=== PATIENT | male | born 1955 | race Caucasian/White ===

== ENCOUNTER 2022-01-20 10:05 | Inpatient (IN) ==
[2022-01-20] MEDS ORDERED: IPRATROPIUM/ALBUTEROL 3 ML AMPUL.NEB NEB ONE ×2 (10:26→10:32)
[2022-01-20] MEDS ORDERED: methylPREDNISolone SOD SUCC 125 MG/2 ML VIAL IV ONE (10:32)
[2022-01-20] MEDS ORDERED: ALBUTEROL SULFATE 5 MG/ML NEB SOLUTION BOTTLE NEB ONE (10:32)
--- NOTE | 2022-01-20 10:36 | Emergency Department Note ---
SOB HPI General Chief Complaint: Shortness of Breath/Dyspnea Stated Complaint: UTI Time Seen by Provider: 01/20/22 10:06 Source: patient Mode of arrival: wheelchair Limitations: no limitations History of Present Illness HPI Narrative: Narrative: Patient presents ED with complaints of shortness of breath has been worsening over the last 11 days. He states at baseline he uses 3 L of oxygen via nasal cannula but has had to go up to 5 L which is the maximum that his machine go up to. He states that his oxygen level dips down to 36% at times but then comes up to about 88%. He denies fever, chills, nausea, vomit, abdominal pain, diarrhea, cardiac chest pain, heart palpitations. He does report that he has had a cough with some sputum production and reports that he has had some blood streaks in the sputum. Patient denies any other alleviating or aggravating factors. Related Data Home Medications Medication Instructions Recorded Confirmed cholecalciferol (vitamin D3) 125 125 mcg PO QDAY 10/31/20 11/09/21 mcg (5,000 unit) capsule ibuprofen 600 mg tablet 600 mg PO TID PRN 10/31/20 11/09/21 pediatric multivitamin PO QDAY 10/31/20 11/09/21 [multivitamin] sildenafil 100 mg tablet 50 mg PO .COMPLEX PRN 10/31/20 11/09/21 furosemide 20 mg tablet 20 mg PO QAM 01/19/21 11/09/21 pantoprazole 40 mg tablet,delayed 40 mg PO QAM 01/19/21 11/09/21 release potassium chloride 10 mEq 10 meq PO QDAY 01/19/21 11/09/21 tablet,extended release Previous Rx's Medication Instructions Recorded Portable concentrator for oxygen #1 ea 07/27/21 BiPap and Supplies #1 ea 11/09/21 albuterol sulfate 90 mcg/actuation 2 puff inhalation QID PRN 11/09/21 aerosol inhaler shortness of breath or wheezing #25.5 grams fluticasone 500 mcg-salmeterol 50 1 inh inhalation BID #180 ea 11/09/21 mcg/dose blistr powdr for inhalation (Wixela Inhub) ipratropium 20 mcg-albuterol 100 1 puff inhalation Q6H #12 grams 11/09/21 mcg/actuation mist for inhalation (Combivent Respimat) Allergies Allergy/AdvReac Type Severity Reaction Status Date / Time No Known Drug Allergies Allergy Verified 01/20/22 10:08 Review of Systems ROS ROS Narrative: Narrative: All systems ED: reviewed and negative except as stated. [facility] Narrative Patient History Narrative: Narrative: Medical/Surgical/Family History All Active Problems (Updated 01/20/22 @ 13:40 by [place] Fatima DO) Acute respiratory failure with hypoxia (Acute) Hypercapnia (Acute) Obstructive sleep apnea (Chronic) REM sleep behavior disorder (Chronic) Snoring (Chronic) Hypersomnia (Chronic) Acute on chronic diastolic (congestive) heart failure (Acute) Foot pain (Acute) SOB (shortness of breath) (Chronic) Orthopnea (Chronic) Status post thoracentesis (Chronic) Gastroesophageal reflux disease (Chronic) Hiatal hernia (Chronic) Excessive cerumen in ear canal (Chronic) Vitamin D deficiency (Chronic) Vitamin B12 deficiency anemia (Chronic) Unspecified hearing loss, bilateral (Chronic) Tinnitus, bilateral (Chronic) Erectile dysfunction (Chronic) Impacted cerumen (Chronic) Dependence on supplemental oxygen (Chronic) Congenital hiatus hernia (Chronic) Hypoxia (Chronic) Bilateral pleural effusion (Chronic) Pulmonary HTN (Chronic) Pneumonia (Chronic) Pleural effusion (Chronic) CHF (congestive heart failure) (Chronic) Acute respiratory failure (Chronic) COPD (chronic obstructive pulmonary disease) (Chronic) Medical History Acute on chronic diastolic (congestive) heart failure Acute respiratory failure Bilateral pleural effusion CHF (congestive heart failure) Congenital hiatus hernia COPD (chronic obstructive pulmonary disease) Dependence on supplemental oxygen Erectile dysfunction Excessive cerumen in ear canal Foot pain Gastroesophageal reflux disease Hiatal hernia Hypersomnia Hypoxia Impacted cerumen Obstructive sleep apnea Orthopnea Pleural effusion Pneumonia Pulmonary HTN REM sleep behavior disorder Snoring SOB (shortness of breath) Tinnitus, bilateral Unspecified hearing loss, bilateral Vitamin B12 deficiency anemia Vitamin D deficiency Surgical History History of colonoscopy Status post thoracentesis Family History Other No pertinent family history Social History Smoking Status: Former smoker Alcohol Intake Frequency: does not drink Substance Use: does not use Exam Narrative Narrative: Narrative: General Limitations: no limitations General appearance: Present alert ENT ENT: Present normal exam and normal oropharynx Chest Chest: Present normal inspection; Absent tenderness Respiratory Respiratory: Present respiratory distress, accessory muscle use and decreased breath sounds; Absent wheezes Cardiovascular Cardiovascular: Present regular rate and normal rhythm Adbominal Abdominal: Present soft; Absent tenderness Extremities Extremities: Present normal inspection and normal capillary refill Neurological Neurological: Present alert and oriented X3 Psychiatric Psychiatric: Present normal affect and normal mood Skin Skin: Present warm (WNL) and intact Course Course Course Narrative: Patient was evaluated for shortness of breath. Patient was found to have O2 saturation of 56% on initial evaluation. VBG showed that his pH was 7.38 but his CO2 level was greater than 95. Patient was given methylprednisolone IV as well as DuoNeb breathing treatment. He refused BiPAP. He was placed on high flow nasal cannula. PE was considered but D-dimer was within normal limits. CHF exacerbation was also considered but his BNP was unremarkable and his chest x-ray did not show any pleural effusion. Chest x-ray revealed pulmonary fibrosis with inflammation. NM was also considered but troponin was normal and EKG was unremarkable. Recommend the patient be admitted to the hospital service for acute respiratory failure with hypoxia and hypercapnia. Case discussed with hospitalist, Dr. Kelly, who was agreed to admit the patient. Plan of care was discussed with patient expressed verbal understanding and agreement. Reevaluation(s) Reevaluation #1: Patient remains hemodynamically stable on high flow nasal cannula. No new complaint Time: 11:33 Consultations Consultation #1: Case discussed with hospitalist who has agreed to admit the patient. He recommends starting patient on CPAP since he would not tolerate BiPAP Time: 13:55 Vital Signs Vital signs: Vital Signs Temperature 97.9 F 01/20/22 10:08 Pulse Rate 88 01/20/22 10:08 Respiratory Rate 22 01/20/22 10:08 Blood Pressure 130/69 01/20/22 10:08 Pulse Oximetry (%) 56 L 01/20/22 10:08 Oxygen Delivery Method 01/20/22 10:08 Oxygen Flow Rate (L/min) 5 01/20/22 10:08 Temperature 97.9 F 01/20/22 10:08 Pulse Rate 80 01/20/22 12:54 Respiratory Rate 23 H 01/20/22 12:54 Blood Pressure 127/67 01/20/22 12:46 Pulse Oximetry (%) 91 01/20/22 12:56 Oxygen Delivery Method 01/20/22 12:56 Oxygen Flow Rate (L/min) 5 01/20/22 10:08 [facility] Narrative Medical decision making narrative: Narrative: Differential Diagnosis Differential Diagnosis: Pneumonia, COPD exacerbation, PE Medical Records Medical records reviewed: Yes I reviewed the patient's medical records. Lab Data Lab results reviewed: Yes I reviewed the patient's lab results. Result diagrams: 01/20/22 10:58 Labs: Lab Results 01/20/22 01/20/22 01/20/22 Range/Units 10:44 10:44 10:49 WBC (4.5-11.0) K/mcL RBC (4.63-6.08) M/mcL Hgb (13.7-17.5) g/dL Hct (40.1-51.0) % POC Hct 46.0 (41-55) MCV (80.0-100.0) fL MCH (26.0-34.0) pg MCHC (31.0-36.0) g/dL RDW (11.5-14.5) % Plt Count (140-440) K/mcL MPV (8.8-12.5) fL Immature Gran % (Auto) (0.0-0.5) % Neut % (Auto) (38.0-78.0) % Lymph % (Auto) (15.5-49.0) % Long % (Auto) (1.0-12.0) % Eos % (Auto) (0.0-7.0) % Baso % (Auto) (0.0-2.0) % Lymph # (Auto) (1.50-4.80) K/mcL Long # (Auto) (0.10-0.90) K/mcL Eos # (Auto) (0.00-0.70) K/mcL Baso # (Auto) (0.00-0.30) K/mcL Immature Gran # (0.00-0.05) K/mcl Absolute Neutrophils (1.80-8.00) K/mcL D-Dimer (0.27-0.50) ug/mL POC VBG pH 7.37 (7.32-7.42) POC VBG pCO2 at Temp 95.1 H* (41-51) POC VBG pO2 38 (25-40) POC VBG HCO3 54.6 H* (24-28) POC VBG Total CO2 > 50.0 H* (25-29) POC Venous O2 Sat 65.0 (40-70) POC VBG Base Excess 29.0 H* (-2-2) VBG Lactic Acid 1.6 (0.5-2) POC Sodium 143 (133-145) POC Potassium 3.8 (3.3-5.1) POC Chloride 88 L (96-108) POC Total CO2 46.0 H* (22-30) POC BUN 12 (6-20) POC Creatinine 0.7 (0.6-1.2) POC Glucose 122 H (70-105) POC WB Ioniz Calcium 1.12 L (1.16-1.32) NT-Pro-B Natriuret Pep (<125.0) pg/mL POC Troponin I < 0.02 (0.00-0.08) 01/20/22 01/20/22 01/20/22 Range/Units 10:57 10:58 10:58 WBC 8.5 (4.5-11.0) K/mcL RBC 4.91 (4.63-6.08) M/mcL Hgb 13.6 L (13.7-17.5) g/dL Hct 47.0 (40.1-51.0) % POC Hct (41-55) MCV 95.7 (80.0-100.0) fL MCH 27.7 (26.0-34.0) pg MCHC 28.9 L (31.0-36.0) g/dL RDW 13.6 (11.5-14.5) % Plt Count 265 (140-440) K/mcL MPV 10.5 (8.8-12.5) fL Immature Gran % (Auto) 0.6 H (0.0-0.5) % Neut % (Auto) 78.6 H (38.0-78.0) % Lymph % (Auto) 11.9 L (15.5-49.0) % Long % (Auto) 6.6 (1.0-12.0) % Eos % (Auto) 1.5 (0.0-7.0) % Baso % (Auto) 0.8 (0.0-2.0) % Lymph # (Auto) 1.01 L (1.50-4.80) K/mcL Long # (Auto) 0.56 (0.10-0.90) K/mcL Eos # (Auto) 0.13 (0.00-0.70) K/mcL Baso # (Auto) 0.07 (0.00-0.30) K/mcL Immature Gran # 0.05 (0.00-0.05) K/mcl Absolute Neutrophils 6.65 (1.80-8.00) K/mcL D-Dimer 0.46 (0.27-0.50) ug/mL POC VBG pH (7.32-7.42) POC VBG pCO2 at Temp (41-51) POC VBG pO2 (25-40) POC VBG HCO3 (24-28) POC VBG Total CO2 (25-29) POC Venous O2 Sat (40-70) POC VBG Base Excess (-2-2) VBG Lactic Acid (0.5-2) POC Sodium (133-145) POC Potassium (3.3-5.1) POC Chloride (96-108) POC Total CO2 (22-30) POC BUN (6-20) POC Creatinine (0.6-1.2) POC Glucose (70-105) POC WB Ioniz Calcium (1.16-1.32) NT-Pro-B Natriuret Pep 410.0 H (<125.0) pg/mL POC Troponin I (0.00-0.08) 01/20/22 Range/Units 13:26 WBC (4.5-11.0) K/mcL RBC (4.63-6.08) M/mcL Hgb (13.7-17.5) g/dL Hct (40.1-51.0) % POC Hct (41-55) MCV (80.0-100.0) fL MCH (26.0-34.0) pg MCHC (31.0-36.0) g/dL RDW (11.5-14.5) % Plt Count (140-440) K/mcL MPV (8.8-12.5) fL Immature Gran % (Auto) (0.0-0.5) % Neut % (Auto) (38.0-78.0) % Lymph % (Auto) (15.5-49.0) % Long % (Auto) (1.0-12.0) % Eos % (Auto) (0.0-7.0) % Baso % (Auto) (0.0-2.0) % Lymph # (Auto) (1.50-4.80) K/mcL Long # (Auto) (0.10-0.90) K/mcL Eos # (Auto) (0.00-0.70) K/mcL Baso # (Auto) (0.00-0.30) K/mcL Immature Gran # (0.00-0.05) K/mcl Absolute Neutrophils (1.80-8.00) K/mcL D-Dimer (0.27-0.50) ug/mL POC VBG pH 7.45 H (7.32-7.42) POC VBG pCO2 at Temp 79.7 H* (41-51) POC VBG pO2 42 H (25-40) POC VBG HCO3 55.1 H* (24-28) POC VBG Total CO2 > 50.0 H* (25-29) POC Venous O2 Sat 76.0 H (40-70) POC VBG Base Excess > 30.0 H* (-2-2) VBG Lactic Acid 1.4 (0.5-2) POC Sodium (133-145) POC Potassium (3.3-5.1) POC Chloride (96-108) POC Total CO2 (22-30) POC BUN (6-20) POC Creatinine (0.6-1.2) POC Glucose (70-105) POC WB Ioniz Calcium (1.16-1.32) NT-Pro-B Natriuret Pep (<125.0) pg/mL POC Troponin I (0.00-0.08) Radiology Data Radiology results reviewed: Yes I reviewed the patient's radiology results. Radiology results narrative: cxr obtained with images reviewed by myself, i agree with radiologist interpretation EKG Data EKG #1: EKG attestation: Yes I reviewed and interpreted this EKG. EKG shows normal: sinus rhythm Rate: normal Rhythm: NSR Mcalister/QRS: left axis deviation Heart block present: None ST segment elevation in: None ST segment depression in: None Interpretation: no acute changes Core Measures AMI Core Measures Followed: Yes Discharge Plan Patient/Caregiver Discharge Instructions Pt seen by AUT[employer] DISMANTLER/PA only: No Clinical Impression: Acute respiratory failure with hypoxia, Hypercapnia Patient Disposition: Xfer As Outpt/Obs ([facility]) Condition: Fair Follow up with: Ranjith Rosen ARNP [Primary Care Provider] - Prescriptions: No Action (DME) Portable concentrator for oxygen See Rx Instructions .Route .MEDSUPPLY Qty: 1 0RF Rx Instructions: 5LPM pulse flow or 3lpm continous. Patient requires a portable concentrator due to: unable to physical carrier tanks of oxygen. cholecalciferol (vitamin D3) 125 mcg (5,000 unit) capsule 125 mcg PO QDAY ibuprofen 600 mg tablet 600 mg PO TID PRN sildenafil 100 mg tablet 50 mg PO .COMPLEX PRN Rx Instructions: 50 mg PO PRN; administer 30 minutes to 4 hours before activity pediatric multivitamin [multivitamin] PO QDAY furosemide 20 mg tablet 20 mg PO QAM pantoprazole 40 mg tablet,delayed release (DR/EC) 40 mg PO QAM albuterol sulfate 90 mcg/actuation HFA aerosol inhaler 2 puff inhalation QID PRN (Reason: shortness of breath or wheezing) Qty: 25.5 3RF Rx Instructions: do not use within 2 hours of wixela fluticasone propion-salmeterol [Wixela Inhub] 500-50 mcg/dose blister with device 1 inh inhalation BID Qty: 180 3RF Rx Instructions: Rinse,gargle and spit with water after use Combivent Respimat 20-100 mcg/actuation mist 1 puff inhalation Q6H Qty: 12 3RF (DME) BiPap and Supplies See Rx Instructions .Route .MEDSUPPLY Qty: 1 0RF Rx Instructions: Bipap 19/15 cm/H20 pressure with O2 at 3 l/m bled in. Please assist with supplies for BiPap and oxygen, as well as a chin strap. potassium chloride 10 mEq tablet extended release 10 meq PO QDAY
[2022-01-20 10:58] LABS: POC Calcium, Ionized 1.12 (1.16-1.32); POC Creatinine 0.7 (0.6-1.2); POC Potassium 3.8 (3.3-5.1)
--- NOTE | 2022-01-20 10:58 | XRay Report ---
HISTORY: Short of breath FINDINGS: There is an ill-defined diffuse interstitial infiltrate in the right lung extending from above the diaphragm to above the right hilum. The greatest opacification surrounds the hilum. The left lung is relatively clear. The lung volumes are normal. There is no lobar consolidation or pleural effusion. The heart size is within upper limits of normal. Comparison with the prior chest x-ray on 04/16/21 shows the infiltrate in the right lung has become worse. There is underlying pulmonary fibrosis which was documented on a prior chest CT done on 02/03/21. IMPRESSION: Inflammation in the right lung superimposed upon underlying pulmonary fibrosis Interpreted and Authenticated by: Ranjith Scott 01/20/22
[2022-01-20 11:40] LABS: Basophils # (Auto) 0.07 K/mcL (0.00-0.30); Basophils % (Auto) 0.8 % (0.0-2.0); Eosinophils # (Auto) 0.13 K/mcL (0.00-0.70); Eosinophils % (Auto) 1.5 % (0.0-7.0); Hemoglobin 13.6 g/dL (13.7-17.5); Lymphocytes # (Auto) 1.01 K/mcL (1.50-4.80); Lymphocytes % (Auto) 11.9 % (15.5-49.0); Mean Cell Volume 95.7 fL (80.0-100.0); Mean Corpuscular HGB Conc 28.9 g/dL (31.0-36.0); Mean Platelet Volume 10.5 fL (8.8-12.5); Monocytes # (Auto) 0.56 K/mcL (0.10-0.90); Monocytes % (Auto) 6.6 % (1.0-12.0); Neutrophils % (Auto) 78.6 % (38.0-78.0); Platelet Count 265 K/mcL (140-440); RBC 4.91 M/mcL (4.63-6.08); Red Cell Distribution Width 13.6 % (11.5-14.5); WBC 8.5 K/mcL (4.5-11.0)
--- NOTE | 2022-01-20 14:15 | Internal Med History&Physical ---
HPI History of Present Illness Patient information: Note initiated : 01/20/22 at 2:05 pm Service Date, if different from initiated Date: [] Patient: Ranjith Peralta 66 y/o M admitted on for UTI. Chief Complaint: [] History of present illness: Mr. Peralta is a 66-year-old male with a history of oxygen dependent COPD with a baseline oxygen requirement of 3 L/min, chronic hypercapnia, congestive heart failure, obesity, GERD who presented to the emergency department for respiratory symptoms that began about 11 days ago. The patient said that began with a cough which was initially productive but that has resolved. The patient has increased his oxygen supplementation up to 5 L/min. He is home oxygen saturation has actuated between the 30s and 90s. In the emergency department, patient was noted to have an extremely elevated CO2 on VBG, compensated pH level. There was no fevers or leukocytosis. Chest x-ray showed inflammation in the right lung superimposed upon underlying pulmonary fibrosis. The patient was started on BiPAP however did not tolerate that therefore started on high flow oxygen which she tolerated better. The patient recently received a CPAP machine however he has not used his CPAP yet because he does not know how to set the machine up. Repeat VBG showed an improvement in CO2 level. The patient says that he feels much better after being in the ED. D-dimer was normal in the emergency department. NT proBNP was elevated at 410. EKG showed normal sinus rhythm, no acute ischemic changes, troponin level was normal. Review of systems. Constitutional: no fever, fatigue, or weight loss Eyes: no vision changes or pain Cardiovascular: no chest pain, no palpitations Respiratory: Positive for cough and dyspnea Gastrointestinal: no abdominal pain, no nausea, vomiting, or diarrhea Genitourinary: no dysuria or difficulty voiding Musculoskeletal: no arthralgia or myalgia Integumentary: no skin lesion or wound Neurological: no focal weakness or numbness Psychiatric: no anxiety or depression Physical exam Head: Atraumatic, normal inspection. Eyes: normal appearance, no scleral icterus. Neck: full ROM Respiratory: Able to converse in full sentences comfortably, on high flow nasal oxygen, diminished breath sounds, no wheezing. Cardiovascular: normal rate and rhythm, S1, S2. GI/Abdominal: Vesely soft, mild tenderness left upper quadrant over ribs, no guarding. Extremities: full range of motion, nontender. Neurological: CN II-XII intact, intact motor, intact sensation. Psychiatric: normal mood. Skin: warm, normal color PFSH PFSH All Active Problems (Updated 01/20/22 @ 13:40 by [place] Fatima DO) Acute respiratory failure with hypoxia (Acute) Hypercapnia (Acute) Obstructive sleep apnea (Chronic) REM sleep behavior disorder (Chronic) Snoring (Chronic) Hypersomnia (Chronic) Acute on chronic diastolic (congestive) heart failure (Acute) Foot pain (Acute) SOB (shortness of breath) (Chronic) Orthopnea (Chronic) Status post thoracentesis (Chronic) Gastroesophageal reflux disease (Chronic) Hiatal hernia (Chronic) Excessive cerumen in ear canal (Chronic) Vitamin D deficiency (Chronic) Vitamin B12 deficiency anemia (Chronic) Unspecified hearing loss, bilateral (Chronic) Tinnitus, bilateral (Chronic) Erectile dysfunction (Chronic) Impacted cerumen (Chronic) Dependence on supplemental oxygen (Chronic) Congenital hiatus hernia (Chronic) Hypoxia (Chronic) Bilateral pleural effusion (Chronic) Pulmonary HTN (Chronic) Pneumonia (Chronic) Pleural effusion (Chronic) CHF (congestive heart failure) (Chronic) Acute respiratory failure (Chronic) COPD (chronic obstructive pulmonary disease) (Chronic) Medical History Acute on chronic diastolic (congestive) heart failure Acute respiratory failure Bilateral pleural effusion CHF (congestive heart failure) Congenital hiatus hernia COPD (chronic obstructive pulmonary disease) Dependence on supplemental oxygen Erectile dysfunction Excessive cerumen in ear canal Foot pain Gastroesophageal reflux disease Hiatal hernia Hypersomnia Hypoxia Impacted cerumen Obstructive sleep apnea Orthopnea Pleural effusion Pneumonia Pulmonary HTN REM sleep behavior disorder Snoring SOB (shortness of breath) Tinnitus, bilateral Unspecified hearing loss, bilateral Vitamin B12 deficiency anemia Vitamin D deficiency Surgical History History of colonoscopy Status post thoracentesis Family History Other No pertinent family history Social History smoking status: Former smoker quit date: 03/14/15 pack-years: 30 alcohol intake frequency: does not drink substance use type: does not use MEDS/ALLERGIES Home Medications and Allergies Home Medications Medication Instructions Recorded Confirmed Type cholecalciferol (vitamin D3) 125 125 mcg PO QDAY 10/31/20 01/20/22 History mcg (5,000 unit) capsule pediatric multivitamin PO QDAY 10/31/20 11/09/21 History [multivitamin] sildenafil 100 mg tablet 50 mg PO .COMPLEX PRN Sexual 10/31/20 11/09/21 History Activity furosemide 20 mg tablet 20 mg PO QAM 01/19/21 01/20/22 History pantoprazole 40 mg tablet,delayed 40 mg PO ACB 01/19/21 01/20/22 History release potassium chloride 10 mEq 10 meq PO QDAY 01/19/21 01/20/22 History tablet,extended release Portable concentrator for oxygen #1 ea 07/27/21 01/20/22 Rx BiPap and Supplies #1 ea 11/09/21 01/20/22 Rx albuterol sulfate 90 mcg/actuation 2 puff inhalation QID PRN 11/09/21 01/20/22 Rx aerosol inhaler shortness of breath or wheezing #25.5 grams fluticasone 500 mcg-salmeterol 50 1 inh inhalation BID #180 ea 11/09/21 01/20/22 Rx mcg/dose blistr powdr for inhalation (Wixela Inhub) ipratropium 20 mcg-albuterol 100 1 puff inhalation Q6H #12 grams 11/09/21 01/20/22 Rx mcg/actuation mist for inhalation (Combivent Respimat) Advil PM 1 tab PO QHS sleep 01/20/22 01/20/22 History atorvastatin 40 mg tablet 40 mg PO QDAY 01/20/22 01/20/22 History budesonide-formoterol HFA 80 1 inh inhalation ONCE 01/20/22 01/20/22 History mcg-4.5 mcg/actuation aerosol inhaler ibuprofen 800 mg tablet 800 mg PO Q8HP PRN Pain 01/20/22 01/20/22 History lisinopril 5 mg tablet 5 mg PO QDAY 01/20/22 01/20/22 History Allergies Allergy/AdvReac Type Severity Reaction Status Date / Time No Known Drug Allergies Allergy Verified 01/20/22 17:24 EXAM Constitutional Vitals: Temp Pulse Resp BP Pulse Ox O2 Del Method O2 Flow Rate 97.9 F 80 23 H 127/67 91 5 01/20/22 10:08 01/20/22 12:54 01/20/22 12:54 01/20/22 12:46 01/20/22 12:56 01/20/22 12:56 01/20/22 10:08 DATA Data Completed and Pending Labs: Labs from last 24 hours 01/20/22 01/20/22 01/20/22 13:26 10:58 10:58 WBC 8.5 RBC 4.91 Hgb 13.6 L Hct 47.0 POC Hct MCV 95.7 MCH 27.7 MCHC 28.9 L RDW 13.6 Plt Count 265 MPV 10.5 Immature Gran % (Auto) 0.6 H Neut % (Auto) 78.6 H Lymph % (Auto) 11.9 L [place] % (Auto) 6.6 Eos % (Auto) 1.5 Baso % (Auto) 0.8 Lymph # (Auto) 1.01 L [place] # (Auto) 0.56 Eos # (Auto) 0.13 Baso # (Auto) 0.07 Immature Gran # 0.05 Absolute Neutrophils 6.65 D-Dimer POC VBG pH 7.45 H POC VBG pCO2 at Temp 79.7 H* POC VBG pO2 42 H POC VBG HCO3 55.1 H* POC VBG Total CO2 > 50.0 H* POC Venous O2 Sat 76.0 H POC VBG Base Excess > 30.0 H* VBG Lactic Acid 1.4 POC Sodium POC Potassium POC Chloride POC Total CO2 POC BUN POC Creatinine POC Glucose POC WB Ioniz Calcium NT-Pro-B Natriuret Pep 410.0 H POC Troponin I 01/20/22 01/20/22 01/20/22 10:57 10:49 10:44 WBC RBC Hgb Hct POC Hct 46.0 MCV MCH MCHC RDW Plt Count MPV Immature Gran % (Auto) Neut % (Auto) Lymph % (Auto) [place] % (Auto) Eos % (Auto) Baso % (Auto) Lymph # (Auto) [place] # (Auto) Eos # (Auto) Baso # (Auto) Immature Gran # Absolute Neutrophils D-Dimer 0.46 POC VBG pH 7.37 POC VBG pCO2 at Temp 95.1 H* POC VBG pO2 38 POC VBG HCO3 54.6 H* POC VBG Total CO2 > 50.0 H* POC Venous O2 Sat 65.0 POC VBG Base Excess 29.0 H* VBG Lactic Acid 1.6 POC Sodium 143 POC Potassium 3.8 POC Chloride 88 L POC Total CO2 46.0 H* POC BUN 12 POC Creatinine 0.7 POC Glucose 122 H POC WB Ioniz Calcium 1.12 L NT-Pro-B Natriuret Pep POC Troponin I 01/20/22 10:44 WBC RBC Hgb Hct POC Hct MCV MCH MCHC RDW Plt Count MPV Immature Gran % (Auto) Neut % (Auto) Lymph % (Auto) [place] % (Auto) Eos % (Auto) Baso % (Auto) Lymph # (Auto) [place] # (Auto) Eos # (Auto) Baso # (Auto) Immature Gran # Absolute Neutrophils D-Dimer POC VBG pH POC VBG pCO2 at Temp POC VBG pO2 POC VBG HCO3 POC VBG Total CO2 POC Venous O2 Sat POC VBG Base Excess VBG Lactic Acid POC Sodium POC Potassium POC Chloride POC Total CO2 POC BUN POC Creatinine POC Glucose POC WB Ioniz Calcium NT-Pro-B Natriuret Pep POC Troponin I < 0.02 A/P Narrative A/P Narrative: Assessment: 66-year-old male with a history of 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 #Acute on chronic hypercapnic respiratory failure #Acute on chronic hypoxic respiratory failure #Possible COPD exacerbation #End-stage oxygen dependent COPD #Chronic diastolic heart failure #Obstructive sleep apnea #Obesity BMI 36 Plan -Noninvasive ventilation if tolerated, preferably BiPAP but if the patient does not tolerate BiPAPand CPAP. -If the patient does not tolerate noninvasive ventilation then will treat with high flow and titrate oxygen supplementation to keep the patient's sats 88 to 92%. -Follow VBG periodically. -Check procalcitonin. -Respiratory virus panel. -[place] PCR. -Consider CT chest. -Home medication reconciliation, continue important meds. -Cardiac diet. -PT consult. -DVT prophylaxis: Lovenox Time Spent With Patient Time: Total time spent is greater than 50% in coordination of care (as documented) at patient's floor/unit and/or counseling patient:
[2022-01-20] MEDS ORDERED: LACTULOSE 20 GM/30 ML ORAL.SOL PO PRN (16:55)
[2022-01-20] MEDS ORDERED: ALBUTEROL SULFATE 2.5 MG/3 ML NEBULIZER NEB PRN (16:55)
[2022-01-20] MEDS ORDERED: ACETAMINOPHEN 325 MG TABLET PO PRN (16:55)
[2022-01-20] MEDS ORDERED: ONDANSETRON 4 MG/2 ML VIAL IV PRN (16:55)
[2022-01-20] MEDS ORDERED: SENNOSIDES 1 TABLET PO PRN (16:55)
[2022-01-20] MEDS: IPRATROPIUM/ALBUTEROL 3 ML AMPUL.NEB NEB SCH ×3 (17:00→23:45)
[2022-01-20 17:42] LABS: ABG Methemoglobin 0.2 % (0.4-1.5); Total Hemoglobin 14.3 gm/Dl (13.5-16.5); VBG Base Excess 19 (-2-3); VBG HCO3 45.7 mmol/L (24.0-28.0); VBG PCO2 61.3 mmHg (41.0-51.0); VBG PH 7.49 U (7.32-7.42); VBG PO2 49.9 mmHg (25.0-40.0); VBG Total CO2 47.5 mmol/L (25.0-29.0)
[2022-01-20] MEDS: 0.9 % SODIUM CHLORIDE 10 ML SYRINGE IV SCH ×2 (20:58→21:05)
[2022-01-20] MEDS: DOCUSATE SODIUM 100 MG CAPSULE PO SCH (21:04)
[2022-01-20] MEDS: methylPREDNISolone SOD SUCC 125 MG/2 ML VIAL IV SCH (21:05)
[2022-01-21] MEDS: IPRATROPIUM/ALBUTEROL 3 ML AMPUL.NEB NEB SCH ×3 (03:03→19:53)
[2022-01-21] MEDS: 0.9 % SODIUM CHLORIDE 10 ML SYRINGE IV SCH ×3 (05:49→22:04)
[2022-01-21 07:02] LABS: Basophils # (Auto) 0.02 K/mcL (0.00-0.30); Basophils % (Auto) 0.2 % (0.0-2.0); Eosinophils # (Auto) 0 K/mcL (0.00-0.70); Eosinophils % (Auto) 0 % (0.0-7.0); Hematocrit 42.8 % (40.1-51.0); Hemoglobin 13.5 g/dL (13.7-17.5); Lymphocytes # (Auto) 0.64 K/mcL (1.50-4.80); Lymphocytes % (Auto) 5.8 % (15.5-49.0); Mean Cell Volume 91.3 fL (80.0-100.0); Mean Corpuscular HGB Conc 31.5 g/dL (31.0-36.0); Mean Platelet Volume 10.4 fL (8.8-12.5); Monocytes # (Auto) 0.43 K/mcL (0.10-0.90); Monocytes % (Auto) 3.9 % (1.0-12.0); Neutrophils % (Auto) 89.6 % (38.0-78.0); Platelet Count 292 K/mcL (140-440); RBC 4.69 M/mcL (4.63-6.08); Red Cell Distribution Width 13.4 % (11.5-14.5); WBC 11.1 K/mcL (4.5-11.0)
[2022-01-21 08:14] LABS: ALT/SGPT 13 U/L (<40); AST/SGOT 11 U/L (<40); Albumin 3.6 gm/dL (3.2-5.2); Albumin/Globulin Ratio 1.1 (1.0-2.3); Alkaline Phosphatase 81 U/L (39-117); Bilirubin,Direct < 0.2 mg/dL (0-0.3); Bilirubin,Total 0.4 mg/dL (0.1-1.0); Blood Urea Nitrogen 13 mg/dL (8-23); Calcium 9.8 mg/dL (8.6-10.4); Carbon Dioxide 40 mmol/L (22-30); Chloride 93 mmol/L (96-108); Globulin 3.2 gm/dL (2.2-3.7); Glomerular Filtration Rate 94; Glucose 154 mg/dL (70-105); Lactate Dehydrogenase 139 U/L (135-225); Phosphorous 1.7 mg/dL (2.5-4.5); Triglycerides 71 mg/dL (<150); Uric Acid 4.8 mg/dL (2.5-8.0)
[2022-01-21] MEDS: ENOXAPARIN 40 MG/0.4 ML SYRINGE SQ SCH (09:12)
[2022-01-21] MEDS: methylPREDNISolone SOD SUCC 125 MG/2 ML VIAL IV SCH (09:12)
[2022-01-21] MEDS: DOCUSATE SODIUM 100 MG CAPSULE PO SCH ×3 (09:12→21:49)
--- NOTE | 2022-01-21 09:24 | EKG ---
[facility] Test Date: 2022-01-20 Pat Name: Ranjith Peralta Department: ED Room: Gender: Male [employer]too [employer] Artist: MIREYA : 1955 Requested By: [place] Fatima Order Number: [id number] Reading MD: Fernando Scott M.D. Measurements Intervals Orange Rate: 79 P: 57 ND: 170 QRS: -45 QRSD: 90 T: 47 QT: 377 QTc: 433 Interpretive Statements Sinus rhythm Left axis deviation Low voltage, extremity and precordial leads Electronically Signed On 01-21-2022 9:24:19 PST by Fernando Scott M.D. /store/[email or web address]/[id number]
[2022-01-21] MEDS ORDERED: IPRATROPIUM/ALBUTEROL 3 ML AMPUL.NEB NEB PRN (12:38)
[2022-01-21] MEDS: NEUTRA PHOS 1 PACKET PO SCH ×2 (12:42→21:49)
[2022-01-21] MEDS: FUROSEMIDE 40 MG/4 ML VIAL IV SCH ×2 (13:50→16:06)
--- NOTE | 2022-01-21 14:02 | Cat Scan Report ---
History: Short of breath, right lung infiltrate, pulmonary fibrosis TECHNIQUE: The chest was imaged without contrast in axial plane at 2.5 mm intervals. Sagittal, coronal and axial MIPS images were acquired. The radiation exposure was limited using dose reduction technology. FINDINGS: Mild to moderate emphysema is present predominantly involving the upper lobes. There is a 7 cm bleb medially in the left lower lobe. Patient has interstitial pulmonary fibrosis throughout both lungs. In the subpleural space, there is a reticular pattern with the greatest involvement in the right lower lobe. Superimposed upon this there are small streaky infiltrates in the right lower lobe. There is no lobar consolidation and no suspicious mass. No pleural effusion is present. There are no abnormally enlarged lymph nodes. The trachea and bronchi are normal. The heart size is normal. Aorta is normal in caliber. No abnormally enlarged lymph nodes are seen in the mediastinum. Incidentally noted is mild gynecomastia. IMPRESSION: COPD and pulmonary fibrosis. Low level inflammation in the right lower lobe superimposed upon the fibrosis Interpreted and Authenticated by: Ranjith Scott 01/21/22
--- NOTE | 2022-01-21 18:50 | Internal Med Progress Note ---
SUBJECTIVE Subjective Patient information: Note initiated : 01/21/22 at 6:47 pm Service Date, if different from initiated Date: [] Patient: Ranjith Peralta 66 y/o M admitted on 01/20/22 for UTI. Chief Complaint: [] Interval history: Mr. Peralta is a 66-year-old male with a history of oxygen dependent COPD with a baseline oxygen requirement of 3 L/min, chronic hypercapnia, congestive heart failure, obesity, GERD who presented to the emergency department for respiratory symptoms that began about 11 days ago. The patient said that began with a cough which was initially productive but that has resolved. The patient has increased his oxygen supplementation up to 5 L/min. He is home oxygen saturation has actuated between the 30s and 90s. In the emergency department, patient was noted to have an extremely elevated CO2 on VBG, compensated pH lev el. There was no fevers or leukocytosis. Chest x-ray showed inflammation in the right lung superimposed upon underlying pulmonary fibrosis. The patient was started on BiPAP however did not tolerate that therefore started on high flow oxygen which she tolerated better. The patient recently received a CPAP machine however he has not used his CPAP yet because he does not know how to set the machine up. Repeat VBG showed an improvement in CO2 level. The patient says that he feels much better after being in the ED. D-dimer was normal in the emergency department. NT proBNP was elevated at 410. EKG showed normal sinus rhythm, no acute ischemic changes, troponin level was normal. 01/21 Patient did have a fever and high-grade temps, he says he feels better overall. CT chest without contrast showed low-level inflammation in the right lower lobe superimposed upon pulmonary fibrosis. Procalcitonin was normal at 0.06. [place] PCR was not detected, respiratory virus panel negative. We will continue to monitor vitals, if the patient spikes fevers again will likely start antibiotics. Physical exam Head: Atraumatic, normal inspection. Eyes: normal appearance, no scleral icterus. Neck: full ROM Respiratory: Nasal cannula oxygen, no respiratory distress. Cardiovascular: normal rate and rhythm, S1, S2. GI/Abdominal: Obesely distended, soft, mild tenderness left upper quadrant over ribs, no guarding. Extremities: full range of motion, nontender. Neurological: CN II-XII intact, intact motor, intact sensation. Psychiatric: normal mood. Skin: warm, normal color Constitutional Vitals: Vital Signs Temp Pulse Resp BP Pulse Ox O2 Del Method O2 Flow Rate 98.4 F 81 20 137/72 89 L 2 01/21/22 16:06 01/21/22 16:15 01/21/22 16:15 01/21/22 16:15 01/21/22 16:15 01/21/22 16:15 01/21/22 16:15 Period Temp Pulse Resp BP Sys/Spear Pulse Ox O2 Del Method O2 Flow Rate Last 24 Hr 98.0 F-100.5 F 66-90 16-34 108-158/69-111 80-97 Heated High Flow Nasal Ca-Nasal Cannula 2-25 Intake and Output 01/21/22 01/21/22 01/21/22 05:59 13:59 21:59 Intake Total 100 1200 790 Output Total 373 182 7694 Balance -325 900 -685 Weight 118.297 kg Patient Weight 01/22/22 05:59 Weight 118.297 kg Intake & Output: Intake & Output 01/21/22 01/21/22 01/21/22 05:59 13:59 21:59 Intake Total 100 1200 790 Output Total 508 050 9184 Balance -325 900 -685 Weight 118.297 kg Intake: Oral 100 1200 790 Output: Void Amount 043 712 1818 Other: Meal Tuna and crackers Lunch Dinner Percent of Meal Consumed 100% 75% Feeding Ability Independent Urine Appearance Clear Clear Clear Urine Color Dark Yellow Dark Yellow Pale Urine Odor Normal OBJ DATA Labs CBC & Chem 7: 01/21/22 06:00 01/21/22 06:00 Labs: Abnormal Lab Results 01/21/22 01/21/22 01/20/22 06:00 06:00 17:15 WBC 11.1 H Hgb 13.5 L MCHC Immature Gran % (Auto) Neut % (Auto) 89.6 H Lymph % (Auto) 5.8 L Lymph # (Auto) 0.64 L Absolute Neutrophils 9.92 H ABG Methemoglobin 0.2 L VBG pH 7.49 H POC VBG pH VBG pCO2 61.3 H* POC VBG pCO2 at Temp VBG pO2 49.9 H POC VBG pO2 VBG HCO3 45.7 H* POC VBG HCO3 VBG Total CO2 47.5 H* POC VBG Total CO2 VBG O2 Saturation 84.0 H POC Venous O2 Sat VBG Base Excess 19 H POC VBG Base Excess Carboxyhemoglobin 6.1 H POC Chloride Chloride 93 L Carbon Dioxide 40 H POC Total CO2 Glucose 154 H POC Glucose POC WB Ioniz Calcium Phosphorus 1.7 L NT-Pro-B Natriuret Pep 01/20/22 01/20/22 01/20/22 13:26 10:58 10:58 WBC Hgb 13.6 L MCHC 28.9 L Immature Gran % (Auto) 0.6 H Neut % (Auto) 78.6 H Lymph % (Auto) 11.9 L Lymph # (Auto) 1.01 L Absolute Neutrophils ABG Methemoglobin VBG pH POC VBG pH 7.45 H VBG pCO2 POC VBG pCO2 at Temp 79.7 H* VBG pO2 POC VBG pO2 42 H VBG HCO3 POC VBG HCO3 55.1 H* VBG Total CO2 POC VBG Total CO2 > 50.0 H* VBG O2 Saturation POC Venous O2 Sat 76.0 H VBG Base Excess POC VBG Base Excess > 30.0 H* Carboxyhemoglobin POC Chloride Chloride Carbon Dioxide POC Total CO2 Glucose POC Glucose POC WB Ioniz Calcium Phosphorus NT-Pro-B Natriuret Pep 410.0 H 01/20/22 01/20/22 10:49 10:44 WBC Hgb MCHC Immature Gran % (Auto) Neut % (Auto) Lymph % (Auto) Lymph # (Auto) Absolute Neutrophils ABG Methemoglobin VBG pH POC VBG pH VBG pCO2 POC VBG pCO2 at Temp 95.1 H* VBG pO2 POC VBG pO2 VBG HCO3 POC VBG HCO3 54.6 H* VBG Total CO2 POC VBG Total CO2 > 50.0 H* VBG O2 Saturation POC Venous O2 Sat VBG Base Excess POC VBG Base Excess 29.0 H* Carboxyhemoglobin POC Chloride 88 L Chloride Carbon Dioxide POC Total CO2 46.0 H* Glucose POC Glucose 122 H POC WB Ioniz Calcium 1.12 L Phosphorus NT-Pro-B Natriuret Pep Meds: Medications Acetaminophen (Acetaminophen 325 Mg Tablet) 650 mg PO Q6HP PRN; Protocol PRN Reason: Per Pain Protocol/Fever > 101 Albuterol Sulfate (Albuterol Sulfate 2.5 Mg/3 Ml Nebulizer) 2.5 mg NEB Q2HP PRN PRN Reason: Shortness Of Breath Albuterol/Ipratropium (Ipratropium/Albuterol 3 Ml Ampul.Neb) 3 ml NEB Q4HRT PRN PRN Reason: dyspnea Last Admin: 01/21/22 13:01 Dose: 3 ml Atorvastatin Calcium (Atorvastatin 40 Mg Tablet) 40 mg PO QDAY [facility] Docusate Sodium (Docusate Sodium 100 Mg Capsule) 100 mg PO BID [facility] Last Admin: 01/21/22 18:19 Dose: Not Given Enoxaparin Sodium (Enoxaparin 40 Mg/0.4 Ml Syringe) 40 mg SQ DAILY [facility] Last Admin: 01/21/22 09:12 Dose: 40 mg Lactulose (Lactulose 20 Gm/30 Ml Oral.Lana) 10 gm PO DAILYP PRN PRN Reason: Constipation Lisinopril (Lisinopril 5 Mg Tablet) 5 mg PO QDAY [facility] Ondansetron HCl (Ondansetron 4 Mg/2 Ml Vial) 4 mg IV Q4HP PRN; Protocol PRN Reason: Nausea And Vomiting Pantoprazole Sodium (Pantoprazole 40 Mg Tablet) 40 mg PO ACB [facility] Budesonide- Formoterol 80-4.5 Mcg Inhaler 1 dose INH DAILY [facility] Pneumococcal Polyvalent Vaccine (Pneumococcal 23-[place]ma P-Sac Vac 0.5 Ml Syringe) 0.5 ml IM .ONCE ONE Stop: 01/22/22 10:01 Potassium/Phosphorus/Sodium (Neutra Phos 1 Packet) 2 packet PO BID [facility] Stop: 01/22/22 09:01 Last Admin: 01/21/22 12:42 Dose: 2 packet Prednisone (Prednisone 20 Mg Tablet) 40 mg PO [facility] Stop: 01/24/22 08:01 Fluticasone/Salmeterol (Fluticasone/Salmeterol 500/50 Inhaler #14) 1 puff INH BID [facility] Senna (Sennosides 1 Tablet) 2 tab PO HSP PRN PRN Reason: Constipation Sodium Chloride (0.9 % Sodium Chloride 10 Ml Syringe) 10 ml IV Q8 [facility] Last Admin: 01/21/22 13:59 Dose: 10 ml ABG Interpretation ABG results: 01/20/22 17:15 ABG Methemoglobin 0.2 L VBG pH 7.49 H VBG pCO2 61.3 H* VBG pO2 49.9 H VBG HCO3 45.7 H* VBG Total CO2 47.5 H* VBG O2 Saturation 84.0 H VBG Base Excess 19 H A/P Narrative A/P Narrative: Assessment: 66-year-old male with a history of 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 #Acute on chronic hypercapnic respiratory failure #Acute on chronic hypoxic respiratory failure #Possible COPD exacerbation #End-stage oxygen dependent COPD #Chronic diastolic heart failure #Obstructive sleep apnea #Obesity BMI 36 Plan -Prednisone 40 mg daily. -Oxygen supplementation. -If patient spikes a fever again will start empiric antibiotic. -Albuterol nebs as needed. -Continue home inhalers, atorvastatin, lisinopril, Protonix. -Cardiac diet. -PT consult. -DVT prophylaxis: Lovenox -CODE STATUS: DNR/DNI -Disposition: Home when stable, possibly tomorrow. Time Spent With Patient Time: Total time spent is greater than 50% in coordination of care (as documented) at patient's floor/unit and/or counseling patient: QUALITY VTE Deep Vein Thrombosis/Pulmonary Embolism Present on Admission: No
[2022-01-21] MEDS: FLUTICASONE/SALMETEROL 500/50 INHALER #14 INH SCH (21:49)
[2022-01-22] MEDS: 0.9 % SODIUM CHLORIDE 10 ML SYRINGE IV SCH (05:16)
[2022-01-22 07:23] LABS: Basophils # (Auto) 0.05 K/mcL (0.00-0.30); Basophils % (Auto) 0.4 % (0.0-2.0); Eosinophils # (Auto) 0.02 K/mcL (0.00-0.70); Eosinophils % (Auto) 0.2 % (0.0-7.0); Hematocrit 44.8 % (40.1-51.0); Hemoglobin 14.3 g/dL (13.7-17.5); Lymphocytes # (Auto) 1.76 K/mcL (1.50-4.80); Lymphocytes % (Auto) 15.3 % (15.5-49.0); Mean Cell Volume 89.4 fL (80.0-100.0); Mean Corpuscular HGB Conc 31.9 g/dL (31.0-36.0); Mean Platelet Volume 10.7 fL (8.8-12.5); Monocytes # (Auto) 1.03 K/mcL (0.10-0.90); Neutrophils % (Auto) 74.8 % (38.0-78.0); Platelet Count 344 K/mcL (140-440); RBC 5.01 M/mcL (4.63-6.08); WBC 11.5 K/mcL (4.5-11.0)
[2022-01-22] MEDS ORDERED: PANTOPRAZOLE 40 MG TABLET PO SCH (07:30)
[2022-01-22 07:44] LABS: Estimated Average Glucose(eAG) 123 mg/dL; Hemoglobin A1C 5.9 % Hgb (4.0-6.0)
--- NOTE | 2022-01-22 07:59 | Discharge Summary ---
Discharge Provider Provider IMPORTANT FOLLOW-UP INFORMATION FOR PCP: Patient information: Note initiated : 01/22/22 at 7:56 am Service Date, if different from initiated Date: [] Patient: Ranjith Peralta 66 y/o M admitted on 01/20/22 for UTI. Chief Complaint: [] Date of admission: 01/20/22 16:25 Discharge date: 01/22/22 Primary care physician: Ranjith Rosen Consults: 01/20/22 Consult to Physician [CONS] Stat Comment: Consulting Provider: Gurjit Kelly Reason For Exam: Physician to Consult COURSE Hospital Course Hospital course: Mr. Peralta is a 66-year-old male with a history of oxygen dependent COPD with a baseline oxygen requirement of 3 L/min, chronic hypercapnia, congestive heart failure, obesity, GERD who presented to the emergency department for respiratory symptoms that began about 11 days ago. The patient said that began with a cough which was initially productive but that has resolved. The patient has increased his oxygen supplementation up to 5 L/min. He is home oxygen saturation has actuated between the 30s and 90s. In the emergency department, patient was noted to have an extremely elevated CO2 on VBG, compensated pH level. There was no fevers or leukocytosis. Chest x-ray showed inflammation in the right lung superimposed upon underlying pulmonary fibrosis. The patient was started on BiPAP however did not tolerate that therefore started on high flow oxygen which she tolerated better. The patient recently received a CPAP machine however he has not used his CPAP yet because he does not know how to set the machine up. Repeat VBG showed an improvement in CO2 level. The patient says that he feels much better after being in the ED. D-dimer was normal in the emergency department. NT proBNP was elevated at 410. EKG showed normal sinus rhythm, no acute ischemic changes, troponin level was normal. 01/21 Patient did have a fever and high-grade temps, he says he feels better overall. CT chest without contrast showed low-level inflammation in the right lower lobe superimposed upon pulmonary fibrosis. Procalcitonin was normal at 0.06. [place] PCR was not detected, respiratory virus panel negative. We will continue to monitor vitals, if the patient spikes fevers again will likely start antibiotics. 01/22 Patient did have some high-grade temps overnight but no fever. Slight increase in white blood cell count to 11,500. CT chest did not show any evidence of pneumonia. Patient attempted using his home BiPAP machine for the first time with respiratory therapy to help however did not tolerate it well. He says he will try it again at home. The patient feels like he is returning to his baseline and wants to discharge home. Discharge to home, complete 4 more days of prednisone for possible COPD exacerbation. Levofloxacin for 5 days given fevers of unknown source. Physical exam Head: Atraumatic, normal inspection. Eyes: normal appearance, no scleral icterus. Neck: full ROM Respiratory: Nasal cannula oxygen, no respiratory distress. Cardiovascular: normal rate and rhythm, S1, S2. GI/Abdominal: Obesely distended, soft, mild tenderness left upper quadrant over ribs, no guarding. Extremities: full range of motion, nontender. Neurological: CN II-XII intact, intact motor, intact sensation. Psychiatric: normal mood. Skin: warm, normal color Discharge diagnosis: Acute on chronic hypercapnic respiratory failure Secondary discharge diagnosis: Possible COPD exacerbation End-stage oxygen dependent COPD Chronic diastolic heart failure Time Spent with Patient Time attestation: Total time spent providing and/or coordinating discharge services: Time spent: Less than 30 minutes EXAM Constitutional Vitals: Temp Pulse Resp BP Pulse Ox O2 Del Method O2 Flow Rate 99.2 F H 68 18 155/98 96 2 01/22/22 04:01 01/22/22 04:01 01/22/22 04:01 01/22/22 04:01 01/22/22 04:01 01/22/22 04:01 01/22/22 04:01 Discharge Data Data Completed and Pending Labs on day of discharge: Labs from last 24 hours 01/22/22 01/22/22 01/22/22 06:10 06:10 06:10 WBC 11.5 H RBC 5.01 Hgb 14.3 Hct 44.8 MCV 89.4 MCH 28.5 MCHC 31.9 RDW 14.0 Plt Count 344 MPV 10.7 Immature Gran % (Auto) 0.3 Neut % (Auto) 74.8 Lymph % (Auto) 15.3 L [place] % (Auto) 9.0 Eos % (Auto) 0.2 Baso % (Auto) 0.4 Lymph # (Auto) 1.76 [place] # (Auto) 1.03 H Eos # (Auto) 0.02 Baso # (Auto) 0.05 Immature Gran # 0.04 Absolute Neutrophils 8.58 H Sodium Pending Potassium Pending Chloride Pending Carbon Dioxide Pending Anion Gap Pending BUN Pending Creatinine Pending GFR Calculation Pending Glucose Pending Hemoglobin A1c 5.9 Estim Average Glucose 123 Uric Acid Pending Calcium Pending Phosphorus Pending Magnesium Pending Total Bilirubin Pending Direct Bilirubin Pending GGT Pending AST Pending ALT Pending Alkaline Phosphatase Pending Lactate Dehydrogenase Pending Total Protein Pending Albumin Pending Globulin Pending Albumin/Globulin Ratio Pending Triglycerides Pending 01/21/22 06:00 WBC RBC Hgb Hct MCV MCH MCHC RDW Plt Count MPV Immature Gran % (Auto) Neut % (Auto) Lymph % (Auto) [place] % (Auto) Eos % (Auto) Baso % (Auto) Lymph # (Auto) [place] # (Auto) Eos # (Auto) Baso # (Auto) Immature Gran # Absolute Neutrophils Sodium 142 Potassium 4.2 Chloride 93 L Carbon Dioxide 40 H Anion Gap 9.0 BUN 13 Creatinine 0.8 GFR Calculation 94 Glucose 154 H Hemoglobin A1c Estim Average Glucose Uric Acid 4.8 Calcium 9.8 Phosphorus 1.7 L Magnesium 2.1 Total Bilirubin 0.4 Direct Bilirubin < 0.2 GGT 8 AST 11 ALT 13 Alkaline Phosphatase 81 Lactate Dehydrogenase 139 Total Protein 6.8 Albumin 3.6 Globulin 3.2 Albumin/Globulin Ratio 1.1 Triglycerides 71 Preliminary micro results at discharge 01/20/22 10:54 Blood Culture - Preliminary Blood Discharge Plan Patient/Caregiver Discharge Instructions Activity: increase activity as tolerated Diet: Regular Diet Prescriptions: New prednisone 20 mg Tablet 40 mg PO QAMCC 4 Days Qty: 8 0RF levofloxacin 500 mg tablet 500 mg PO QDAY 5 Days Qty: 5 0RF Continued (DME) Portable concentrator for oxygen See Rx Instructions .Route .MEDSUPPLY Qty: 1 0RF Rx Instructions: 5LPM pulse flow or 3lpm continous. Patient requires a portable concentrator due to: unable to physical carrier tanks of oxygen. cholecalciferol (vitamin D3) 125 mcg (5,000 unit) capsule 125 mcg PO QDAY pediatric multivitamin [multivitamin] 1 tab PO QDAY furosemide 20 mg tablet 20 mg PO QAM pantoprazole 40 mg tablet,delayed release (DR/EC) 40 mg PO ACB albuterol sulfate 90 mcg/actuation HFA aerosol inhaler 2 puff inhalation QID PRN (Reason: shortness of breath or wheezing) Qty: 25.5 3RF Rx Instructions: do not use within 2 hours of wixela fluticasone propion-salmeterol [Wixela Inhub] 500-50 mcg/dose blister with device 1 inh inhalation BID Qty: 180 3RF Rx Instructions: Rinse,gargle and spit with water after use Combivent Respimat 20-100 mcg/actuation mist 1 puff inhalation Q6H Qty: 12 3RF (DME) BiPap and Supplies See Rx Instructions .Route .MEDSUPPLY Qty: 1 0RF Rx Instructions: Bipap 19/15 cm/H20 pressure with O2 at 3 l/m bled in. Please assist with supplies for BiPap and oxygen, as well as a chin strap. potassium chloride 10 mEq tablet extended release 10 meq PO QDAY Advil PM 200 mg 1 tab PO QHS atorvastatin 40 mg Tablet 40 mg PO QDAY ibuprofen 800 mg Tablet 800 mg PO Q8HP PRN (Reason: Pain ) lisinopril 5 mg Tablet 5 mg PO QDAY budesonide-formoterol 80-4.5 mcg/actuation Hfa Aerosol Inhaler 1 inh INHALATION ONCE Follow Up Plan Follow up with: Ranjith Rosen ARNP [Primary Care Provider] - Patient Disposition: Home, Self-Care Prognosis: Fair Overall status at discharge: patient is progressing back to baseline Discharge Orders: Discharge Order (Routine); Ordered 01/22/22 Ordered By: Gurjit ALVAREZ VTE Deep Vein Thrombosis/Pulmonary Embolism Present on Admission: No
[2022-01-22] MEDS ORDERED: predniSONE 20 MG TABLET PO SCH (08:00)
[2022-01-22] MEDS ORDERED: LISINOPRIL 5 MG TABLET PO SCH (09:00)
[2022-01-22] MEDS ORDERED: Budesonide-Formoterol 80-4.5 mcg Inhaler INH SCH (09:00)
[2022-01-22] MEDS ORDERED: ATORVASTATIN 40 MG TABLET PO SCH (09:00)
[2022-01-22] MEDS: FLUTICASONE/SALMETEROL 500/50 INHALER #14 INH SCH (09:06)
[2022-01-22] MEDS: ENOXAPARIN 40 MG/0.4 ML SYRINGE SQ SCH (09:09)
[2022-01-22] MEDS: DOCUSATE SODIUM 100 MG CAPSULE PO SCH (09:09)
[2022-01-22] MEDS: NEUTRA PHOS 1 PACKET PO SCH (09:09)
[2022-01-22 09:20] LABS: Appearance,Urine CLEAR (Clear); Bilirubin,Urine NEGATIVE (Negative); Color,Urine LT. YELLOW; Culture Indicated,Urine No; Glucose,Urine (UA) NEGATIVE (Negative); Ketones,Urine NEGATIVE (Negative); Leukocyte Esterase,Urine NEGATIVE /uL (Negative); Nitrate,Urine NEGATIVE (Negative); Protein,Urine NEGATIVE (Negative); Specific Gravity,Urine 1.015 (1.000-1.035); Urine Blood NEGATIVE ery/mcL (Negative); Urobilinogen,Urine Normal
[2022-01-22] MEDS ORDERED: FLU VACC QS2022-23(6MOS UP)/PF 60 MCG/0.5 ML SYRINGE IM ONE (10:00)
[2022-01-22] MEDS ORDERED: PNEUMOCOCCAL 23-VAL P-SAC VAC 0.5 ML SYRINGE IM ONE (10:00)
[2022-01-22 10:03] LABS: ALT/SGPT 15 U/L (<40); AST/SGOT 20 U/L (<40); Albumin 3.6 gm/dL (3.2-5.2); Albumin/Globulin Ratio 1.2 (1.0-2.3); Alkaline Phosphatase 80 U/L (39-117); Bilirubin,Direct < 0.2 mg/dL (0-0.3); Bilirubin,Total 0.4 mg/dL (0.1-1.0); Blood Urea Nitrogen 17 mg/dL (8-23); Calcium 9.3 mg/dL (8.6-10.4); Carbon Dioxide 41 mmol/L (22-30); Chloride 92 mmol/L (96-108); Glomerular Filtration Rate 94; Glucose 111 mg/dL (70-105); Lactate Dehydrogenase 172 U/L (135-225); Phosphorous 3.5 mg/dL (2.5-4.5); Triglycerides 129 mg/dL (<150)
== END 2022-01-22 10:35 | disposition home or self-care (01) | DRG 189 ==
LOC: ED 10:05 → ICU 16:25
PROVIDERS: ADMIT Internal Medicine; ATTEND Internal Medicine

== ENCOUNTER 2023-04-28 09:03 | Inpatient (IN) ==
[2023-04-28 10:05] LABS: Basophils # (Auto) 0.05 K/mcL (0.00-0.30); Basophils % (Auto) 0.4 % (0.0-2.0); Eosinophils # (Auto) 0.04 K/mcL (0.00-0.70); Eosinophils % (Auto) 0.3 % (0.0-7.0); Hematocrit 42.9 % (40.1-51.0); Lymphocytes % (Auto) 5.4 % (15.5-49.0); Mean Cell Volume 94.5 fL (80.0-100.0); Mean Corpuscular HGB Conc 30.3 g/dL (31.0-36.0); Mean Platelet Volume 10.4 fL (8.8-12.5); Monocytes # (Auto) 0.66 K/mcL (0.10-0.90); Monocytes % (Auto) 5.1 % (1.0-12.0); Neutrophils % (Auto) 87.9 % (38.0-78.0); Platelet Count 347 K/mcL (140-440); RBC 4.54 M/mcL (4.63-6.08); Red Cell Distribution Width 12.5 % (11.5-14.5); WBC 12.9 K/mcL (4.5-11.0)
[2023-04-28] MEDS: methylPREDNISolone SOD SUCC 125 MG/2 ML VIAL IV ONE (10:06)
[2023-04-28] MEDS: IPRATROPIUM/ALBUTEROL 3 ML AMPUL.NEB NEB ONE (10:14)
[2023-04-28 10:37] LABS: ALT/SGPT 14 U/L (<40); AST/SGOT 11 U/L (<40); Albumin 4.1 gm/dL (3.2-5.2); Albumin/Globulin Ratio 1.4 (1.0-2.3); Alkaline Phosphatase 82 U/L (39-117); Bilirubin,Total 0.3 mg/dL (0.1-1.0); Blood Urea Nitrogen 12 mg/dL (8-23); Calcium 9.9 mg/dL (8.6-10.4); Carbon Dioxide 43 mmol/L (22-30); Chloride 94 mmol/L (96-108); Glomerular Filtration Rate 93; Glucose 155 mg/dL (70-105)
[2023-04-28] MEDS: FUROSEMIDE 20 MG/2 ML VIAL IV ONE (11:12)
[2023-04-28] MEDS: AZITHROMYCIN 500 MG in DEXTROSE 5% IN WATER 250 ML IV ONE (11:16)
[2023-04-28 12:28] LABS: ABG Methemoglobin 0.1 % (0.4-1.5); Total Hemoglobin 14.3 gm/Dl (13.5-16.5); VBG Base Excess 15 (-2-3); VBG HCO3 45.5 mmol/L (24.0-28.0); VBG Oxygen Saturation 93.9 % (40.0-70.0); VBG PH 7.34 U (7.32-7.42); VBG PO2 107.4 mmHg (25.0-40.0); VBG Total CO2 48.1 mmol/L (25.0-29.0)
[2023-04-28] MEDS: cefTRIAXone 1 GM VIAL IV ONE (13:11)
[2023-04-28] MEDS ORDERED: MAGNESIUM SULFATE 2 GM/50 ML BAG IV PRN (13:40)
[2023-04-28] MEDS: POTASSIUM CHLORIDE 20 MEQ/15 ML ML PO PRN (14:52)
[2023-04-28] MEDS ORDERED: POLYETHYLENE GLYCOL 3350 17 GM PACKET PO PRN (18:55)
[2023-04-28] MEDS: IPRATROPIUM/ALBUTEROL 3 ML AMPUL.NEB NEB PRN (19:29)
[2023-04-28] MEDS: guaiFENesin 600 MG TAB.SR.12H PO SCH (21:35)
[2023-04-28] MEDS: traZODone HCL 50 MG TABLET PO PRN (21:40)
[2023-04-28] MEDS: FLUTICASONE/SALMETEROL 500/50 INHALER #14 INH SCH (21:46)
[2023-04-29] MEDS: 0.9 % SODIUM CHLORIDE 10 ML SYRINGE IV SCH (04:57)
[2023-04-29 05:25] LABS: Basophils # (Auto) 0.02 K/mcL (0.00-0.30); Basophils % (Auto) 0.2 % (0.0-2.0); Eosinophils # (Auto) 0.01 K/mcL (0.00-0.70); Eosinophils % (Auto) 0.1 % (0.0-7.0); Hematocrit 39.7 % (40.1-51.0); Hemoglobin 12.1 g/dL (13.7-17.5); Lymphocytes # (Auto) 1.53 K/mcL (1.50-4.80); Lymphocytes % (Auto) 13.8 % (15.5-49.0); Mean Cell Volume 94.7 fL (80.0-100.0); Mean Corpuscular HGB Conc 30.5 g/dL (31.0-36.0); Monocytes # (Auto) 0.88 K/mcL (0.10-0.90); Monocytes % (Auto) 7.9 % (1.0-12.0); Neutrophils % (Auto) 77.4 % (38.0-78.0); Platelet Count 302 K/mcL (140-440); RBC 4.19 M/mcL (4.63-6.08); Red Cell Distribution Width 12.6 % (11.5-14.5); WBC 11.1 K/mcL (4.5-11.0)
[2023-04-29 05:37] LABS: ABG Methemoglobin 0.1 % (0.4-1.5); Total Hemoglobin 13.7 gm/Dl (13.5-16.5); VBG Base Excess 19 (-2-3); VBG HCO3 47.7 mmol/L (24.0-28.0); VBG Oxygen Saturation 92.9 % (40.0-70.0); VBG PCO2 74.6 mmHg (41.0-51.0); VBG PH 7.42 U (7.32-7.42); VBG PO2 138.5 mmHg (25.0-40.0)
[2023-04-29 06:16] LABS: ALT/SGPT 8 U/L (<40); AST/SGOT 9 U/L (<40); Albumin 3.7 gm/dL (3.2-5.2); Albumin/Globulin Ratio 1.4 (1.0-2.3); Alkaline Phosphatase 71 U/L (39-117); Bilirubin,Direct < 0.2 mg/dL (0-0.3); Bilirubin,Total < 0.2 mg/dL (0.1-1.0); Blood Urea Nitrogen 17 mg/dL (8-23); Calcium 9.7 mg/dL (8.6-10.4); Carbon Dioxide 46 mmol/L (22-30); Chloride 93 mmol/L (96-108); Globulin 2.7 gm/dL (2.2-3.7); Glomerular Filtration Rate 89; Glucose 132 mg/dL (70-105); Lactate Dehydrogenase 115 U/L (135-225); Phosphorous 2.5 mg/dL (2.5-4.5); Triglycerides 84 mg/dL (<150); Uric Acid 7.1 mg/dL (2.5-8.0)
[2023-04-29] MEDS: PANTOPRAZOLE 40 MG TABLET PO SCH (07:13)
[2023-04-29] MEDS: POTASSIUM CHLORIDE 10 MEQ TABLET PO SCH (10:21)
[2023-04-29] MEDS: amLODIPine 5 MG TABLET PO SCH (10:21)
[2023-04-29] MEDS: ATORVASTATIN 40 MG TABLET PO SCH (10:21)
[2023-04-29] MEDS: FUROSEMIDE 40 MG TABLET PO SCH (10:24)
[2023-04-29] MEDS: LISINOPRIL 5 MG TABLET PO SCH (10:24)
[2023-04-29] MEDS: hydrOXYzine 25 MG TABLET PO SCH (10:24)
[2023-04-29] MEDS: AZITHROMYCIN 500 MG in DEXTROSE 5% IN WATER 250 ML IV SCH (10:28)
[2023-04-29] MEDS: ENOXAPARIN 40 MG/0.4 ML SYRINGE SQ SCH (20:54)
[2023-04-30] MEDS: ENOXAPARIN 40 MG/0.4 ML SYRINGE SQ SCH (09:02)
[2023-04-30] MEDS: AZITHROMYCIN 250 MG TABLET PO SCH (09:02)
[2023-04-30 10:15] LABS: ALT/SGPT 8 U/L (<40); AST/SGOT 14 U/L (<40); Albumin/Globulin Ratio 1.5 (1.0-2.3); Alkaline Phosphatase 78 U/L (39-117); Bilirubin,Direct < 0.2 mg/dL (0-0.3); Bilirubin,Total < 0.2 mg/dL (0.1-1.0); Blood Urea Nitrogen 19 mg/dL (8-23); Carbon Dioxide 43 mmol/L (22-30); Chloride 92 mmol/L (96-108); Globulin 2.7 gm/dL (2.2-3.7); Glomerular Filtration Rate 89; Glucose 167 mg/dL (70-105); Lactate Dehydrogenase 211 U/L (135-225); Phosphorous 2.1 mg/dL (2.5-4.5); Triglycerides 217 mg/dL (<150)
[2023-04-30 10:28] LABS: Basophils # (Auto) 0.09 K/mcL (0.00-0.30); Basophils % (Auto) 0.9 % (0.0-2.0); Eosinophils # (Auto) 0.29 K/mcL (0.00-0.70); Eosinophils % (Auto) 2.9 % (0.0-7.0); Hematocrit 42.4 % (40.1-51.0); Hemoglobin 13.7 g/dL (13.7-17.5); Lymphocytes # (Auto) 2.02 K/mcL (1.50-4.80); Lymphocytes % (Auto) 20.4 % (15.5-49.0); Mean Cell Volume 88.9 fL (80.0-100.0); Mean Corpuscular HGB Conc 32.3 g/dL (31.0-36.0); Mean Platelet Volume 10.6 fL (8.8-12.5); Monocytes # (Auto) 0.75 K/mcL (0.10-0.90); Monocytes % (Auto) 7.6 % (1.0-12.0); Neutrophils % (Auto) 67.3 % (38.0-78.0); Platelet Count 328 K/mcL (140-440); RBC 4.77 M/mcL (4.63-6.08); Red Cell Distribution Width 12.7 % (11.5-14.5); WBC 9.9 K/mcL (4.5-11.0)
[2023-04-30] MEDS: Ipratropium-Albuterol [Combivent Respimat] 20-100 INH SCH (11:38)
[2023-04-30] MEDS: NEUTRA PHOS 1 PACKET PO SCH (11:38)
[2023-05-01] MEDS: predniSONE 20 MG TABLET PO SCH (07:45)
[2023-05-01] MEDS ORDERED: FLUZONE QUAD QS2023-24/PF 60 MCG/0.5 ML SYRINGE IM ONE (09:00)
[2023-05-01] MEDS ORDERED: FLUZONE HD QS2023-24/PF 240 MCG/0.7 ML SYRINGE IM ONE (09:00)
[2023-05-01] MEDS ORDERED: PNEUMOCOCCAL 23-VAL P-SAC VAC 0.5 ML SYRINGE IM ONE (09:00)
== END 2023-05-01 12:46 | disposition home or self-care (01) | DRG 190 ==
LOC: ED 09:03 → ICU 13:23 → MEDSUR 04-30 13:52
PROVIDERS: ADMIT Internal Medicine; ATTEND Internal Medicine

== ENCOUNTER 2023-10-31 15:51 | Inpatient (IN) ==
[2023-10-31] MEDS: methylPREDNISolone SOD SUCC 125 MG/2 ML VIAL IV ONE (16:44)
[2023-10-31] MEDS: ASPIRIN 81 MG TAB.CHEW CHEWED ONE (16:44)
[2023-10-31] MEDS: IPRATROPIUM/ALBUTEROL 3 ML AMPUL.NEB NEB ONE ×4 (16:52→22:51)
[2023-10-31 16:59] LABS: Basophils # (Auto) 0.04 K/mcL (0.00-0.30); Basophils % (Auto) 0.4 % (0.0-2.0); Eosinophils % (Auto) 1.8 % (0.0-7.0); Hematocrit 41.5 % (40.1-51.0); Hemoglobin 12.6 g/dL (13.7-17.5); Lymphocytes # (Auto) 0.96 K/mcL (1.50-4.80); Lymphocytes % (Auto) 8.8 % (15.5-49.0); Mean Corpuscular HGB Conc 30.4 g/dL (31.0-36.0); Mean Platelet Volume 10.8 fL (8.8-12.5); Monocytes # (Auto) 0.99 K/mcL (0.10-0.90); Monocytes % (Auto) 9.1 % (1.0-12.0); Neutrophils % (Auto) 79.6 % (38.0-78.0); Platelet Count 255 K/mcL (140-440); RBC 4.46 M/mcL (4.63-6.08); WBC 10.9 K/mcL (4.5-11.0)
[2023-10-31 17:10] LABS: INR 0.9 (0.9-1.1); Prothrombin Time 12.8 sec (11.9-14.5)
[2023-10-31 17:28] LABS: ALT/SGPT 6 U/L (<40); AST/SGOT 12 U/L (<40); Albumin 4.1 gm/dL (3.2-5.2); Albumin/Globulin Ratio 1.7 (1.0-2.3); Alkaline Phosphatase 91 U/L (39-117); Bilirubin,Total 0.4 mg/dL (0.1-1.0); Blood Urea Nitrogen 11 mg/dL (8-23); Calcium 9.3 mg/dL (8.6-10.4); Carbon Dioxide 39 mmol/L (22-30); Chloride 100 mmol/L (96-108); Globulin 2.4 gm/dL (2.2-3.7); Glomerular Filtration Rate 93; Glucose 102 mg/dL (70-105); Potassium 4.5 mmol/L (3.3-5.1); Sodium 144 mmol/L (133-145)
[2023-10-31] MEDS: AZITHROMYCIN 250 MG TABLET PO ONE (17:51)
[2023-10-31] MEDS: cefTRIAXone 2 GM in DEXTROSE 5% IN WATER 50 ML IV ONE ×2 (17:51→18:11)
[2023-10-31] MEDS: DEXTROSE 5% IN WATER 50 ML IV ONE (18:12)
[2023-10-31] MEDS ORDERED: SENNOSIDES 1 TABLET PO PRN (22:18)
[2023-10-31] MEDS ORDERED: ALBUTEROL SULFATE 2.5 MG/3 ML NEBULIZER NEB PRN (22:18)
[2023-10-31] MEDS ORDERED: ONDANSETRON 4 MG/2 ML VIAL IV PRN (22:18)
[2023-10-31] MEDS ORDERED: LACTULOSE 20 GM/30 ML ORAL.SOL PO PRN (22:18)
[2023-10-31] MEDS ORDERED: ACETAMINOPHEN 325 MG TABLET PO PRN (22:18)
[2023-10-31] MEDS: IPRATROPIUM/ALBUTEROL 3 ML AMPUL.NEB NEB SCH (22:51)
[2023-10-31] MEDS: MELATONIN 3 MG TABLET PO SCH (23:11)
[2023-10-31] MEDS: DOCUSATE SODIUM 100 MG CAPSULE PO SCH (23:12)
[2023-10-31] MEDS: guaiFENesin 600 MG TAB.SR.12H PO SCH (23:12)
[2023-10-31] MEDS: 0.9 % SODIUM CHLORIDE 10 ML SYRINGE IV SCH (23:12)
[2023-11-01] MEDS: MELATONIN 3 MG TABLET PO ONE (00:10)
[2023-11-01] MEDS: guaiFENesin 600 MG TAB.SR.12H PO ONE (00:10)
[2023-11-01 06:01] LABS: Basophils # (Auto) 0.02 K/mcL (0.00-0.30); Basophils % (Auto) 0.1 % (0.0-2.0); Eosinophils # (Auto) 0 K/mcL (0.00-0.70); Eosinophils % (Auto) 0 % (0.0-7.0); Hematocrit 41.1 % (40.1-51.0); Hemoglobin 12.6 g/dL (13.7-17.5); Lymphocytes # (Auto) 0.62 K/mcL (1.50-4.80); Lymphocytes % (Auto) 4.1 % (15.5-49.0); Mean Cell Volume 91.9 fL (80.0-100.0); Mean Corpuscular HGB Conc 30.7 g/dL (31.0-36.0); Mean Platelet Volume 11.1 fL (8.8-12.5); Monocytes # (Auto) 0.13 K/mcL (0.10-0.90); Monocytes % (Auto) 0.9 % (1.0-12.0); Neutrophils % (Auto) 94.6 % (38.0-78.0); Platelet Count 258 K/mcL (140-440); RBC 4.47 M/mcL (4.63-6.08); Red Cell Distribution Width 12.7 % (11.5-14.5)
[2023-11-01 07:06] LABS: ALT/SGPT 7 U/L (<40); AST/SGOT 13 U/L (<40); Albumin 3.9 gm/dL (3.2-5.2); Albumin/Globulin Ratio 1.6 (1.0-2.3); Alkaline Phosphatase 92 U/L (39-117); Bilirubin,Direct < 0.2 mg/dL (0-0.3); Bilirubin,Total 0.2 mg/dL (0.1-1.0); Blood Urea Nitrogen 13 mg/dL (8-23); Calcium 9.4 mg/dL (8.6-10.4); Carbon Dioxide 36 mmol/L (22-30); Chloride 98 mmol/L (96-108); Globulin 2.5 gm/dL (2.2-3.7); Glomerular Filtration Rate 98; Glucose 177 mg/dL (70-105); Lactate Dehydrogenase 147 U/L (135-225); Phosphorous 3.6 mg/dL (2.5-4.5); Potassium 4.8 mmol/L (3.3-5.1); Sodium 141 mmol/L (133-145); Triglycerides 41 mg/dL (<150); Uric Acid 4.9 mg/dL (2.5-8.0)
[2023-11-01] MEDS: acetaZOLAMIDE SOD 500 MG VIAL IV ONE (07:52)
[2023-11-01] MEDS: BUDESONIDE 0.5 MG/2 ML AMPUL.NEB NEB SCH (07:55)
[2023-11-01] MEDS: methylPREDNISolone SOD SUCC 125 MG/2 ML VIAL IV SCH (08:58)
[2023-11-01] MEDS: FUROSEMIDE 40 MG/4 ML VIAL IV SCH ×2 (08:59→16:07)
[2023-11-01] MEDS ORDERED: cefTRIAXone 1 GM VIAL IV SCH (09:00)
[2023-11-01] MEDS: ENOXAPARIN 40 MG/0.4 ML SYRINGE SQ SCH (09:01)
[2023-11-01] MEDS ORDERED: cefTRIAXone 1 GM in DEXTROSE 5% IN WATER 50 ML IV SCH (16:00)
[2023-11-02 06:19] LABS: ALT/SGPT 27 U/L (<40); AST/SGOT 36 U/L (<40); Albumin/Globulin Ratio 1.8 (1.0-2.3); Alkaline Phosphatase 75 U/L (39-117); Bilirubin,Direct < 0.2 mg/dL (0-0.3); Bilirubin,Total 0.5 mg/dL (0.1-1.0); Blood Urea Nitrogen 9 mg/dL (8-23); Calcium 8.9 mg/dL (8.6-10.4); Carbon Dioxide 28 mmol/L (22-30); Chloride 99 mmol/L (96-108); Globulin 2.2 gm/dL (2.2-3.7); Glomerular Filtration Rate 105; Glucose 132 mg/dL (70-105); Lactate Dehydrogenase 215 U/L (135-225); Phosphorous 3.1 mg/dL (2.5-4.5); Potassium 4.1 mmol/L (3.3-5.1); Sodium 137 mmol/L (133-145); Triglycerides 46 mg/dL (<150); Uric Acid 4.7 mg/dL (2.5-8.0)
[2023-11-02] MEDS: FUROSEMIDE 40 MG/4 ML VIAL IV ONE (08:38)
[2023-11-02] MEDS: acetaZOLAMIDE SOD 500 MG VIAL IV ONE (08:39)
[2023-11-02 08:58] LABS: Basophils # (Auto) 0.02 K/mcL (0.00-0.30); Basophils % (Auto) 0.1 % (0.0-2.0); Eosinophils # (Auto) 0 K/mcL (0.00-0.70); Eosinophils % (Auto) 0 % (0.0-7.0); Hematocrit 43.3 % (40.1-51.0); Hemoglobin 13.3 g/dL (13.7-17.5); Lymphocytes # (Auto) 0.53 K/mcL (1.50-4.80); Lymphocytes % (Auto) 2.5 % (15.5-49.0); Mean Cell Volume 92.7 fL (80.0-100.0); Mean Corpuscular HGB Conc 30.7 g/dL (31.0-36.0); Monocytes # (Auto) 0.32 K/mcL (0.10-0.90); Monocytes % (Auto) 1.5 % (1.0-12.0); Neutrophils % (Auto) 95.5 % (38.0-78.0); Platelet Count 290 K/mcL (140-440); RBC 4.67 M/mcL (4.63-6.08); WBC 21.1 K/mcL (4.5-11.0)
== END 2023-11-02 11:08 | disposition home health service (06) | DRG 189 ==
LOC: ED 15:51 → ICU 22:11
PROVIDERS: ADMIT Internal Medicine; ATTEND Internal Medicine

== ENCOUNTER 2024-10-17 08:32 | Inpatient (IN) ==
[2024-10-17] MEDS ORDERED: IOPAMIDOL 100 ML BOTTLE IV ONE (08:33)
[2024-10-17] MEDS: IPRATROPIUM/ALBUTEROL 3 ML AMPUL.NEB NEB ONE (08:49)
[2024-10-17] MEDS: cefTRIAXone 2 GM in DEXTROSE 5% IN WATER 50 ML IV ONE (09:20)
[2024-10-17 09:23] LABS: Basophils # (Auto) 0.08 K/mcL (0.00-0.30); Basophils % (Auto) 0.7 % (0.0-2.0); Eosinophils # (Auto) 0.07 K/mcL (0.00-0.70); Eosinophils % (Auto) 0.6 % (0.0-7.0); Hematocrit 41.8 % (40.1-51.0); Hemoglobin 12.3 g/dL (13.7-17.5); Lymphocytes # (Auto) 1.24 K/mcL (1.50-4.80); Lymphocytes % (Auto) 10.9 % (15.5-49.0); Mean Corpuscular HGB Conc 29.4 g/dL (31.0-36.0); Monocytes # (Auto) 0.91 K/mcL (0.10-0.90); Monocytes % (Auto) 8.0 % (1.0-12.0); Neutrophils % (Auto) 79.1 % (38.0-78.0); Platelet Count 296 K/mcL (140-440); RBC 4.34 M/mcL (4.63-6.08); WBC 11.4 K/mcL (4.5-11.0)
[2024-10-17 09:42] LABS: ALT/SGPT 10 U/L (<40); AST/SGOT 11 U/L (<40); Albumin 3.8 gm/dL (3.2-5.2); Albumin/Globulin Ratio 1.4 (1.0-2.3); Alkaline Phosphatase 119 U/L (39-117); Anion Gap 8.0 (8.0-16.0); Bilirubin,Total 0.4 mg/dL (0.1-1.0); Blood Urea Nitrogen 12 mg/dL (8-23); Calcium 9.7 mg/dL (8.6-10.4); Carbon Dioxide 38 mmol/L (22-30); Chloride 99 mmol/L (96-108); Globulin 2.8 gm/dL (2.2-3.7); Glucose 135 mg/dL (70-105); Potassium 4.4 mmol/L (3.3-5.1); Sodium 145 mmol/L (133-145)
[2024-10-17] MEDS: FUROSEMIDE 40 MG/4 ML VIAL IV ONE (09:56)
[2024-10-17] MEDS: AZITHROMYCIN 500 MG in DEXTROSE 5% IN WATER 250 ML IV ONE (09:56)
[2024-10-17] MEDS ORDERED: ACETAMINOPHEN 325 MG TABLET PO PRN (14:00)
[2024-10-17] MEDS ORDERED: ONDANSETRON 4 MG/2 ML VIAL IV PRN (14:00)
[2024-10-17] MEDS ORDERED: SENNOSIDES 1 TABLET PO SCH (14:00)
[2024-10-17] MEDS: IPRATROPIUM/ALBUTEROL 3 ML AMPUL.NEB NEB SCH (14:11)
[2024-10-17] MEDS: 0.9 % SODIUM CHLORIDE 10 ML SYRINGE IV SCH (14:35)
[2024-10-17] MEDS: acetaZOLAMIDE SOD 500 MG VIAL IV ONE (14:35)
[2024-10-17 14:58] LABS: ALT/SGPT 10 U/L (<40); AST/SGOT 11 U/L (<40); Albumin 4.2 gm/dL (3.2-5.2); Albumin/Globulin Ratio 1.5 (1.0-2.3); Alkaline Phosphatase 124 U/L (39-117); Anion Gap 12.0 (8.0-16.0); Bilirubin,Direct < 0.2 mg/dL (0-0.3); Bilirubin,Total 0.3 mg/dL (0.1-1.0); Blood Urea Nitrogen 13 mg/dL (8-23); Calcium 10.0 mg/dL (8.6-10.4); Carbon Dioxide 41 mmol/L (22-30); Chloride 93 mmol/L (96-108); Globulin 2.8 gm/dL (2.2-3.7); Glucose 227 mg/dL (70-105); Phosphorous 3.0 mg/dL (2.5-4.5); Potassium 4.6 mmol/L (3.3-5.1); Sodium 146 mmol/L (133-145); Triglycerides 68 mg/dL (<150); Uric Acid 4.8 mg/dL (2.5-8.0)
[2024-10-17] MEDS: FUROSEMIDE 40 MG/4 ML VIAL IV SCH (15:57)
[2024-10-17] MEDS: LEVOFLOXACIN 750 MG/150 ML BAG IV SCH (15:57)
[2024-10-18] MEDS: ALBUTEROL SULFATE 2.5 MG/3 ML NEBULIZER NEB PRN (04:10)
[2024-10-18 07:14] LABS: Basophils # (Auto) 0.01 K/mcL (0.00-0.30); Basophils % (Auto) 0.1 % (0.0-2.0); Eosinophils # (Auto) 0 K/mcL (0.00-0.70); Eosinophils % (Auto) 0 % (0.0-7.0); Hematocrit 37.6 % (40.1-51.0); Hemoglobin 11.1 g/dL (13.7-17.5); Lymphocytes # (Auto) 1.35 K/mcL (1.50-4.80); Lymphocytes % (Auto) 11.9 % (15.5-49.0); Mean Corpuscular HGB Conc 29.5 g/dL (31.0-36.0); Monocytes # (Auto) 1.06 K/mcL (0.10-0.90); Monocytes % (Auto) 9.3 % (1.0-12.0); Neutrophils % (Auto) 78.1 % (38.0-78.0); Platelet Count 263 K/mcL (140-440); RBC 3.95 M/mcL (4.63-6.08); WBC 11.4 K/mcL (4.5-11.0)
[2024-10-18 07:32] LABS: ALT/SGPT 8 U/L (<40); AST/SGOT 9 U/L (<40); Albumin 3.8 gm/dL (3.2-5.2); Albumin/Globulin Ratio 1.5 (1.0-2.3); Alkaline Phosphatase 101 U/L (39-117); Anion Gap 9.0 (8.0-16.0); Bilirubin,Direct < 0.2 mg/dL (0-0.3); Bilirubin,Total 0.2 mg/dL (0.1-1.0); Blood Urea Nitrogen 17 mg/dL (8-23); Calcium 9.6 mg/dL (8.6-10.4); Carbon Dioxide 36 mmol/L (22-30); Chloride 98 mmol/L (96-108); Globulin 2.6 gm/dL (2.2-3.7); Glucose 115 mg/dL (70-105); Phosphorous 2.3 mg/dL (2.5-4.5); Potassium 4.2 mmol/L (3.3-5.1); Sodium 143 mmol/L (133-145); Triglycerides 52 mg/dL (<150); Uric Acid 4.8 mg/dL (2.5-8.0)
[2024-10-18] MEDS: acetaZOLAMIDE SOD 500 MG VIAL IV SCH (09:04)
[2024-10-18] MEDS: ENOXAPARIN 40 MG/0.4 ML SYRINGE SQ SCH (09:04)
[2024-10-18] MEDS ORDERED: AZITHROMYCIN 500 MG in DEXTROSE 5% IN WATER 250 ML IV SCH (10:00)
[2024-10-18] MEDS: CARVEDILOL 3.125 MG TABLET PO SCH (22:13)
[2024-10-19 06:01] LABS: Basophils # (Auto) 0.01 K/mcL (0.00-0.30); Basophils % (Auto) 0.1 % (0.0-2.0); Eosinophils # (Auto) 0 K/mcL (0.00-0.70); Eosinophils % (Auto) 0 % (0.0-7.0); Hematocrit 41.8 % (40.1-51.0); Hemoglobin 13.0 g/dL (13.7-17.5); Lymphocytes # (Auto) 0.72 K/mcL (1.50-4.80); Lymphocytes % (Auto) 5.8 % (15.5-49.0); Mean Corpuscular HGB Conc 31.1 g/dL (31.0-36.0); Monocytes # (Auto) 0.24 K/mcL (0.10-0.90); Monocytes % (Auto) 1.9 % (1.0-12.0); Neutrophils % (Auto) 92.0 % (38.0-78.0); Platelet Count 332 K/mcL (140-440); RBC 4.56 M/mcL (4.63-6.08); WBC 12.4 K/mcL (4.5-11.0)
[2024-10-19] MEDS: LACTULOSE 20 GM/30 ML ORAL.SOL PO PRN (06:05)
[2024-10-19 06:10] LABS: ALT/SGPT 10 U/L (<40); AST/SGOT 12 U/L (<40); Albumin 4.1 gm/dL (3.2-5.2); Albumin/Globulin Ratio 1.4 (1.0-2.3); Alkaline Phosphatase 110 U/L (39-117); Anion Gap 10.0 (8.0-16.0); Bilirubin,Direct < 0.2 mg/dL (0-0.3); Bilirubin,Total 0.3 mg/dL (0.1-1.0); Blood Urea Nitrogen 27 mg/dL (8-23); Calcium 10.2 mg/dL (8.6-10.4); Carbon Dioxide 35 mmol/L (22-30); Chloride 93 mmol/L (96-108); Globulin 2.9 gm/dL (2.2-3.7); Glucose 156 mg/dL (70-105); Phosphorous 4.0 mg/dL (2.5-4.5); Potassium 4.6 mmol/L (3.3-5.1); Sodium 138 mmol/L (133-145); Triglycerides 64 mg/dL (<150); Uric Acid 5.7 mg/dL (2.5-8.0)
[2024-10-19] MEDS: PANTOPRAZOLE 40 MG TABLET PO SCH (07:44)
[2024-10-19] MEDS: ATORVASTATIN 40 MG TABLET PO SCH (08:21)
== END 2024-10-19 11:09 | disposition home health service (06) | DRG 189 ==
LOC: ED 08:32 → ICU 13:53
PROVIDERS: ADMIT Internal Medicine; ATTEND Internal Medicine